=== PATIENT | female | born 1995 | race African-American/Black ===

== ENCOUNTER 2022-01-05 17:21 | Emergency (ER) | payer SELFPAY ==
[~2022-01-05] VITALS: Ht 182.9 cm; Wt 60.0 kg
[2022-01-05 17:34] VITALS: BP 142/100
== END 2022-01-06 00:25 | disposition left against medical advice (07) ==
LOC: ER 17:21
DX: Z53.21 Procedure and treatment not carried out due to patient leaving prior to being seen by health care provider (principal)